=== PATIENT | female | born 1960 | race Caucasian/White ===

== ENCOUNTER → 2017-07-08 | Outpatient (CLI) | payer BC ==
[~2017-07-08] MED LIST: MAXALT5 MG PO; PRINIVIL2.5 MG PO; PRINZIDE 12.5 M1 TAB PO; PROZAC10 M1 PO
== END | disposition home or self-care (01) ==
LOC: MAMMO 06-17 01:00
DX: Z12.31 Encounter for screening mammogram for malignant neoplasm of breast (principal)

== ENCOUNTER 2017-09-06 11:32 | Inpatient (IN) | payer BC ==
[~2017-09-06] VITALS: Ht 167.6 cm; Wt 90.0 kg
[~2017-09-06 11:32] MED LIST changes: -PROZAC10 M1 PO; +PROZAC10 MG PO
[2017-09-06 11:57] VITALS: BP 161/92
[2017-09-06 11:59] LABS: BASO # 0.1 10*3/uL (0.0-0.1); BASO % 0.9 % (0.0-1.0); EOS # 0.2 10*3/uL (0.0-0.4); EOS % 2.5 % (1.0-4.0); HEMOGLOBIN 13.3 g/dl (12.0-16.0); LYMPH # 1.9 10*3/uL (1.3-4.4); LYMPH % 27.7 % (27.0-41.0); MEAN CELL VOLUME 88.2 fl (81.0-99.0); MEAN CORPUSCULAR HGB 30.1 pg (27.0-31.0); MEAN CORPUSCULAR HGB CONC 34.1 g/dl (33.0-37.0); MEAN PLATELET VOLUME 9.3 fl (9.6-12.3); MONO # 0.4 10*3/uL (0.1-1.0); MONO % 6.3 % (3.0-9.0); NEUT # 4.3 10*3/uL (2.3-7.9); NEUT % 62.3 % (47.0-73.0); PLATELET COUNT AUTOMATED 320 10*3/uL (130-400); RED BLOOD COUNT 4.42 10*6/uL (4.10-5.10); RED CELL DISTRI WIDTH 12.8 % (0-14.5); WHITE BLOOD COUNT 6.9 10*3/uL (4.8-10.8)
[2017-09-06 12:07] LABS: ACT PARTIAL THROMBO TIME 26.2 SECONDS (20.8-31.5)
[2017-09-06 12:17] LABS: ALBUMIN 3.7 gm/dl (3.1-4.5); ALKALINE PHOSPHATASE 91 U/L (45-117); BUN 16 mg/dl (7-24); CHLORIDE 106 mmol/L (98-107); CREATININE 0.63 mg/dL (0.55-1.02); POTASSIUM 3.7 mmol/L (3.5-5.1); SGOT/AST 12 IU/L (3-35); SGPT/ALT 23 U/L (12-78); SODIUM 142 mmol/L (136-145)
[2017-09-06 12:18] LABS: TROPONIN I < 0.015 ng/ml (<0.045)
--- NOTE | 2017-09-06 12:59 | NUR ---
REPORT GIVEN TO PAWAN ROLLE AT THIS TIME.
--- NOTE | 2017-09-06 13:00 | NUR ---
PATIENT TAKEN TO THE 4TH FLOOR AT THIS TIME.
--- NOTE | 2017-09-06 13:10 | NUR ---
A 56, admitted to , under the services of ADRI Angela DO with a diagnosis of CHEST PAIN WITH HIGH RSK FOR CARDIAC ETIOLOGY. Chief complaint is CHEST PAIN. Patient arrived via bed from ER. Monitor applied. Initial assessment completed. Vital signs taken and recorded. ADRI ANGELA DO notified of admission to the unit. Orders received. See assessment for past medical history, medications and allergies. Patient and/or family oriented to unit. [facility] visitation policy reviewed. Clothing/patient valuable form completed. CHERSIE BINGHAM
--- NOTE | 2017-09-06 13:10 | NUR ---
PAWAN RN AT BEDSIDE WITH PATIENT ON 4TH FLOOR.
[2017-09-06] MEDS ORDERED: FELDENE20 MG PO (13:22)
[2017-09-06 13:33] VITALS: BP 152/78
--- NOTE | 2017-09-06 14:39 | NUR ---
NOTIFIED OF CONSULT NNO
[2017-09-06 16:00] VITALS: BP 131/71
[2017-09-06 20:00] VITALS: BP 131/59
--- NOTE | 2017-09-06 20:30 | NUR ---
PT GIVEN PRN NORCO FOR PAIN. WILL CONTINUE TO MONITOR PT.
--- NOTE | 2017-09-06 21:00 | NUR ---
PAIN MED EFFECTIVE. PAIN HAS DECREASED AND IS TOLERABLE PER PT. WILL CONTINUE TO MONITOR
[2017-09-07] VITALS: BP 130/69
[2017-09-07 07:46] LABS: BASO # 0.1 10*3/uL (0.0-0.1); EOS # 0.2 10*3/uL (0.0-0.4); EOS % 3.5 % (1.0-4.0); HEMATOCRIT 38.1 % (37.0-47.0); HEMOGLOBIN 12.8 g/dl (12.0-16.0); LYMPH # 1.7 10*3/uL (1.3-4.4); LYMPH % 26.3 % (27.0-41.0); MEAN CELL VOLUME 90.5 fl (81.0-99.0); MEAN CORPUSCULAR HGB 30.4 pg (27.0-31.0); MEAN CORPUSCULAR HGB CONC 33.6 g/dl (33.0-37.0); MEAN PLATELET VOLUME 9.8 fl (9.6-12.3); MONO # 0.3 10*3/uL (0.1-1.0); MONO % 5.2 % (3.0-9.0); NEUT % 63.7 % (47.0-73.0); PLATELET COUNT AUTOMATED 315 10*3/uL (130-400); RED BLOOD COUNT 4.21 10*6/uL (4.10-5.10); RED CELL DISTRI WIDTH 12.9 % (0-14.5); WHITE BLOOD COUNT 6.3 10*3/uL (4.8-10.8)
[2017-09-07 08:00] VITALS: BP 141/74
[2017-09-07 08:12] LABS: ACT PARTIAL THROMBO TIME 25.8 SECONDS (20.8-31.5); ALBUMIN 3.3 gm/dl (3.1-4.5); BUN 14 mg/dl (7-24); CHLORIDE 108 mmol/L (98-107); CHOLESTEROL 165 mg/dL (<200); CREATININE 0.65 mg/dL (0.55-1.02); POTASSIUM 3.7 mmol/L (3.5-5.1); SGOT/AST 15 IU/L (3-35); SGPT/ALT 24 U/L (12-78); SODIUM 143 mmol/L (136-145); TOTAL PROTEIN 6.4 gm/dL (6.4-8.2); TRIGLYCERIDES 173 mg/dl (<150); VLDL CHOLESTEROL 35 mg/dL (6-40)
[2017-09-07 08:14] LABS: ALKALINE PHOSPHATASE 87 U/L (45-117); HDL CHOLESTEROL 43 mg/dl (40-60); LDL CHOLESTEROL 87 mg/dL (9-159)
--- NOTE | 2017-09-07 08:30 | NUR ---
Patient resting quietly with no c/o discomfort. Respirations easy and regular. Denies chest pain/pressure. Vital signs stable. No overt distress. HILLARY LYON R
[2017-09-07 09:16] LABS: VITAMIN D, 25-HYDROXY 15.6 ng/mL (30-100)
[2017-09-07 12:00] VITALS: BP 144/84
--- NOTE | 2017-09-07 13:09 | NUR ---
DR BRAVO SEES PT. OK TO BE DISCHARGED AND FOLLOW UP IN THE OFFICE. DR Radha AKINS NOTIFIED.
--- NOTE | 2017-09-07 13:50 | NUR ---
FLU SHOT GIVEN.
--- NOTE | 2017-09-07 14:21 | NUR ---
Discharge instructions reviewed with patient/family. Patient receptive and verbalizes understanding. Follow-up care arranged. Written instructions given to patient/family. HILLARY LYON
== END 2017-09-07 14:21 | disposition home or self-care (01) | DRG 313 ==
LOC: ED 11:32 → EDHOLD 12:12 → 4E 12:24
PROVIDERS: Emergency Medicine; Internal Medicine; ADMIT Internal Medicine
DX: R07.9 Chest pain, unspecified (principal); E66.9 Obesity, unspecified; I10 Essential (primary) hypertension; K59.00 Constipation, unspecified; G43.909 Migraine, unspecified, not intractable, without status migrainosus; R00.2 Palpitations; M19.90 Unspecified osteoarthritis, unspecified site; Z90.710 Acquired absence of both cervix and uterus; Z91.011 Allergy to milk products; Z79.899 Other long term (current) drug therapy; Z82.49 Family history of ischemic heart disease and other diseases of the circulatory system; Z80.42 Family history of malignant neoplasm of prostate; Z80.52 Family history of malignant neoplasm of bladder; Z68.30 Body mass index [BMI] 30.0-30.9, adult

== ENCOUNTER → 2017-09-26 | Outpatient (CLI) | payer BC ==
[~2017-09-26] MED LIST changes: +FELDENE20 MG PO
--- NOTE | ~2017-09-26 | ST ---
[place], [place] EXERCISE STRESS TEST REPORT [id number] UN[facility] #: [id number] ROOM: DOCTOR: SHANNAN MAN MD BIRTHDATE: [birth year] DOS: 09/26/2017 EXERCISE NUCLEAR STRESS TEST INDICATIONS: Chest pain. REFERRING PHYSICIAN: Dr. Niraj Barry. PROCEDURE: The patient walked on a full Uzair protocol stress test for 8 minutes 20 seconds and stopped for fatigue. Her resting heart rate of 68 reji to a peak of 163, which represented 99% of her maximum predicted heart rate at a workload of 10 METS. The resting blood pressure of 138/82, reji to 200/62. She had no chest pain. She had no significant arrhythmias. She had no diagnostic ST or T-wave changes. Crane treadmill score is 8.3 consistent with a low risk for cardiac events. IMPRESSIONS: 1. Good exercise capacity without chest pain or diagnostic electrocardiographic changes. 2. Crane treadmill score consistent with a low risk for cardiac events. 3. One minute prior to completion of the exercise protocol, the patient was given radionuclide intravenously. Please see the separate imaging report for further details of the patient's stress test results. SHANNAN MAN MD CM:STRESS:EXERCISE STRESS TEST REPORT [id number] SHANNAN MAN MD
== END | disposition home or self-care (01) ==
LOC: CARD 00:32
DX: I07.1 Rheumatic tricuspid insufficiency (principal); I10 Essential (primary) hypertension; Z87.898 Personal history of other specified conditions

== ENCOUNTER → 2017-11-01 | Outpatient (CLI) | payer BC | END | disposition home or self-care (01) | LOC: US 10:25 | DX: L73.9 Follicular disorder, unspecified (principal) ==

== ENCOUNTER 2018-05-26 17:12 | Emergency (ER) | payer BC ==
[~2018-05-26] VITALS: Wt 87.5 kg
[2018-05-26 17:51] LABS: BILIRUBIN NEGATIVE (NEGATIVE); BLOOD NEGATIVE (NEGATIVE); CLARITY CLEAR (CLEAR); COLOR YELLOW (YELLOW); GLUCOSE NEGATIVE (NEGATIVE); KETONE NEGATIVE (NEGATIVE); LEUKO ESTERASE NEGATIVE (NEGATIVE); NITRITE NEGATIVE (NEGATIVE); SPECIFIC GRAVITY 1.025 (1.005-1.030); UROBILINOGEN 0.2 E.U./dl (0.2-1.0)
[2018-05-26 17:53] LABS: BASO # 0.1 10*3/uL (0.0-0.1); EOS # 0.1 10*3/uL (0.0-0.4); EOS % 1.8 % (1.0-4.0); HEMATOCRIT 39.3 % (37.0-47.0); HEMOGLOBIN 13.1 g/dl (12.0-16.0); LYMPH # 2.5 10*3/uL (1.3-4.4); LYMPH % 41.2 % (27.0-41.0); MEAN CELL VOLUME 90.6 fl (81.0-99.0); MEAN CORPUSCULAR HGB 30.2 pg (27.0-31.0); MEAN CORPUSCULAR HGB CONC 33.3 g/dl (33.0-37.0); MEAN PLATELET VOLUME 9.3 fl (9.6-12.3); MONO # 0.4 10*3/uL (0.1-1.0); MONO % 6.1 % (3.0-9.0); NEUT % 49.7 % (47.0-73.0); PLATELET COUNT AUTOMATED 336 10*3/uL (130-400); RED BLOOD COUNT 4.34 10*6/uL (4.10-5.10)
[2018-05-26 18:09] LABS: ALBUMIN 3.9 gm/dl (3.1-4.5); ALKALINE PHOSPHATASE 87 U/L (45-117); BUN 15 mg/dl (7-24); CHLORIDE 106 mmol/L (98-107); CREATININE 0.99 mg/dL (0.55-1.02); POTASSIUM 3.8 mmol/L (3.5-5.1); SGOT/AST 14 IU/L (3-35); SGPT/ALT 28 U/L (12-78); SODIUM 139 mmol/L (136-145); TOTAL PROTEIN 7.2 gm/dL (6.4-8.2)
[2018-05-26 18:40] LABS: BACTERIA TRACE; WBC 0-2 wbc/hpf (0-5)
[2018-05-26] MEDS ORDERED: PREDNISONE50 MG PO (18:48)
[2018-05-26] MEDS ORDERED: NAPROSYN500 MG PO (18:48)
[2018-05-26] MEDS ORDERED: CYCLOBENZAPRINE10 MG PO (18:48)
== END 2018-05-26 18:48 | disposition home or self-care (01) ==
LOC: ED 17:12
PROVIDERS: Nurse Practitioner Family
DX: S39.012A Strain of muscle, fascia and tendon of lower back, initial encounter (principal); M54.16 Radiculopathy, lumbar region; Z87.442 Personal history of urinary calculi; Z91.018 Allergy to other foods; Z79.899 Other long term (current) drug therapy; Z90.710 Acquired absence of both cervix and uterus; X58.XXXA Exposure to other specified factors, initial encounter; Y93.89 Activity, other specified; Y92.89 Other specified places as the place of occurrence of the external cause; Y99.8 Other external cause status

== ENCOUNTER → 2018-07-14 | Outpatient (CLI) | payer BC ==
[~2018-07-14] MED LIST changes: +CYCLOBENZAPRINE10 MG PO; +NAPROSYN500 MG PO; +PREDNISONE50 MG PO
== END | disposition home or self-care (01) ==
LOC: MAMMO 02:58
DX: Z12.31 Encounter for screening mammogram for malignant neoplasm of breast (principal)

== ENCOUNTER → 2019-09-16 | Outpatient (CLI) | payer BC | END | disposition home or self-care (01) | LOC: US 10:57 | DX: R92.2 Inconclusive mammogram (principal) ==

== ENCOUNTER → 2020-03-28 | Outpatient (CLI) | payer BC | END | disposition home or self-care (01) | LOC: US 01:22 | DX: N60.02 Solitary cyst of left breast (principal) ==

== ENCOUNTER → 2020-08-31 | Outpatient (CLI) | payer BC | END | disposition home or self-care (01) | LOC: MAMMO 00:12 | PROVIDERS: ATTEND Nurse Practitioner Women's Health | DX: Z12.31 Encounter for screening mammogram for malignant neoplasm of breast (principal); N60.02 Solitary cyst of left breast ==

== ENCOUNTER → 2020-09-17 | Outpatient (CLI) | payer BC | END | disposition home or self-care (01) | LOC: COVID19 12:35 | PROVIDERS: ATTEND Nurse Practitioner Adult Health | DX: Z20.828 Contact with and (suspected) exposure to other viral communicable diseases (principal) ==

== ENCOUNTER → 2021-03-08 | Outpatient (CLI) | payer BC | END | disposition home or self-care (01) | LOC: US 10:37 | PROVIDERS: ATTEND Nurse Practitioner Women's Health | DX: N60.02 Solitary cyst of left breast (principal) ==

== ENCOUNTER → 2021-06-21 | Outpatient (CLI) | payer BC | END | disposition home or self-care (01) | LOC: RAD 09:15 | PROVIDERS: ATTEND Internal Medicine | DX: M16.0 Bilateral primary osteoarthritis of hip (principal); M19.011 Primary osteoarthritis, right shoulder; M17.0 Bilateral primary osteoarthritis of knee ==

== ENCOUNTER → 2021-06-28 | Outpatient (CLI) | payer BC | END | disposition home or self-care (01) | LOC: US 01:41 | PROVIDERS: ATTEND Internal Medicine | DX: E04.1 Nontoxic single thyroid nodule (principal) ==

== ENCOUNTER → 2021-09-06 | Outpatient (CLI) | payer BC | END | disposition home or self-care (01) | LOC: MAMMO 01:39 | PROVIDERS: ATTEND Nurse Practitioner Women's Health | DX: Z12.31 Encounter for screening mammogram for malignant neoplasm of breast (principal) ==

== ENCOUNTER → 2023-03-11 | Outpatient (CLI) | payer OTHER | END | disposition home or self-care (01) | LOC: MAMMO 01:12 | PROVIDERS: ATTEND Nurse Practitioner Women's Health | DX: Z12.31 Encounter for screening mammogram for malignant neoplasm of breast (principal); N64.9 Disorder of breast, unspecified ==

== ENCOUNTER → 2024-04-06 | Outpatient (CLI) | payer OTHER | END | disposition home or self-care (01) | LOC: MAMMO 01:33 | PROVIDERS: ATTEND Nurse Practitioner Women's Health | DX: Z12.31 Encounter for screening mammogram for malignant neoplasm of breast (principal) ==

== ENCOUNTER → 2025-04-07 | Outpatient (CLI) | payer OTHER | END | disposition home or self-care (01) | LOC: MAMMO 09:30 | PROVIDERS: ATTEND Nurse Practitioner Family | DX: Z12.31 Encounter for screening mammogram for malignant neoplasm of breast (principal) ==